=== PATIENT | male | born 1980 | race Hispanic/Latino ===

== ENCOUNTER 2017-12-03 13:20 | Emergency (ER) | payer OTHER ==
[2017-12-03 13:25] VITALS: O2SAT 100
--- NOTE | 2017-12-03 13:44 | ED PDOC ---
HPI: Headache Time Seen by Provider: 12/03/17 13:28 Chief Complaint (Nursing): Headache Chief Complaint (Provider): Headache History Per: Patient History/Exam Limitations: no limitations Onset/Duration Of Symptoms: Days (x4) Current Symptoms Are (Timing): Still Present Additional Complaint(s): 37 y/o male with a no significant PMHx presents to the ED complaining of a severe headache/migraine, onset 4 days ago. Patient states pain is predominately located on the right side of his head associated with constant tearing of the right eye and nausea. Patient reports of getting similar headaches often. Patient reports cluster began approximately 4 days ago and gradually got worse. Patient states pain was much worse today causing him to take two tablets of maxalt at various times and a sumatriptan injection with no relief. Patient reports of having an appointment with a neurologist tomorrow for symptoms. At this time, patient is requesting oxygen for symptom relief. PMD: No Provider Past Medical History Reviewed: Historical Data, Nursing Documentation, Vital Signs Vital Signs: Last Vital Signs Temp 98 F 12/03/17 13:22 Pulse 47 L 12/03/17 13:22 Resp 18 12/03/17 13:22 BP 112/70 12/03/17 13:22 Pulse Ox 100 12/03/17 13:22 - Medical History PMH: No Chronic Diseases - Surgical History Surgical History: No Surg Hx - Family History Family History: States: Unknown Family Hx - Allergies Allergies/Adverse Reactions: Allergies Allergy/AdvReac Type Severity Reaction Status Date / Time No Known Allergies Allergy Verified 12/03/17 13:22 Review of Systems ROS Statement: Except As Marked, All Systems Reviewed And Found Negative Eyes: Positive for: Other (tearing of right eye) Gastrointestinal: Positive for: Nausea Neurological: Positive for: Headache (severe) Physical Exam - Reviewed Nursing Documentation Reviewed: Yes Vital Signs Reviewed: Yes - Physical Exam Appears: Positive for: In Acute Distress Skin: Positive for: Normal Color, Warm, Dry Eye Exam: Positive for: Conjunctival injection (on the right eye) Neck: Positive for: Normal, Painless ROM Cardiovascular/Chest: Positive for: Regular Rate, Rhythm Extremity: Positive for: Normal ROM Neurologic/Psych: Positive for: Alert, Oriented (x3). Negative for: Motor/ Sensory Deficits - ECG O2 Sat by Pulse Oximetry: 100 (RA) Pulse Ox Interpretation: Normal Medical Decision Making Medical Decision Making: Time: 1336 Plan: -- Reglan 10 mg IVP -- SOLU-medrol 125 mg IVP -- Nasal Cannula Pt reports feeling greatly improved on re-eval, headache went from 02/19 to now 11/19. Pt medicated with Toradol 30 mg and 2 mg morphine with full resolution of symptoms. Neuro exam non focal on re-eval. stable for discharge at this time. Pt reports he is seeing his neuro tomorrow, [facility] at 2:30 pm Scribe Attestation: Documented by Omkar Harris, acting as a scribe for Jeanette Benavidez PA-C. Provider Scribe Attestation: All medical record entries made by the Scribe were at my direction and personally dictated by me. I have reviewed the chart and agree that the record accurately reflects my personal performance of the history, physical exam, medical decision making, and the department course for this patient. I have also personally directed, reviewed, and agree with the discharge instructions and disposition. Disposition - Clinical Impression Clinical Impression: Cluster headache - Patient ED Disposition Is Patient to be Admitted: No - Disposition Disposition: Routine/Home Disposition Time: 15:36 Condition: STABLE Additional Instructions: follow upw ith neurologist tomorrow as planned Instructions: Cluster Headache Forms: [employer] (Irish)
[2017-12-03 15:29] VITALS: PULSE 58; RESP 16
[2017-12-03 15:56] VITALS: BP 122/68; TEMP 98.2
== END 2017-12-03 15:56 | disposition home or self-care (01) ==
LOC: H.ER 13:20
DX: G44.009 Cluster headache syndrome, unspecified, not intractable (principal)
CPT/HCPCS: 96374; 96375; 99284; J1885; J2270; J2765; J2930